=== PATIENT | female | born 1965 | race African-American/Black ===

== ENCOUNTER → 2016-07-10 | Outpatient (CLI) | payer OTHER ==
[~2016-07-10] VITALS: Ht 165.1 cm; Wt 93.4 kg
[~2016-07-10] MED LIST: CYCLOBENZAPRINE5 MG PO; CYMBALTA20 MG PO; FARXIGA5 MG PO; HYDROCODONE-APA1 TA1 PO; IBUPROFEN 200200 M1 PO; IBUPROFEN 800800 M1 PO
--- NOTE | ~2016-07-10 | HPC ---
[facility] [place] [address] PAIN MANAGEMENT CONSULTATION Name: JOSE BISHOP Room #: REG [facility] Freeman#: [id number] Admission: 07/10/16 Attend Phys: Harrison Dallas DO Discharge: Date of : 65 Report #: [id number] THIS REPORT FOR: //name// CC: Kathy Dallas The patient is a very pleasant 50-year-old female, seen in consultation at the request of Dr. Chun for evaluation of pain, neck, left shoulder, arm, radiating into the thumb, index, and long finger. The patient notes paresthesia, but fortunately denies weakness. She has tried physical therapy, ibuprofen, and p.o. steroids (the latter affording transient relief). She notes symptoms seem to be exacerbated with driving and working. Gets some relief with neck repositioning. She describes continuous, steady, constant, rhythmic, periodic, intermittent, brief momentary, burning, aching, gnawing, and tender pain. Rates anywhere from 7-10 on a 0-10 visual analog scale. REVIEW OF SYSTEMS: Complete review of systems was attached to the chart and gone over with the patient. She is single. Does not smoke or drink alcohol to excess. She has enjoyed remarkably good health, does have some issues with glucose control, non-insulin dependent diabetes treated with Farxiga. He has tried ibuprofen 800 mg t.i.d., Flexeril 5 mg for spasm, and hydrocodone 7.5/325 infrequently for current left cervical radicular pain issues. Does use Cymbalta 20 mg daily. Prior surgical history is simply tubal ligation in 2002. At of the , the patient has worked as maintenance custodian. She continues to work despite pain. Pain impact score, however, is quite high, averaging about 9.1 for all indices queried. PHYSICAL EXAMINATION: VITAL SIGNS: Reveals a 5 feet 5 inches, 203 pounds female, BMI is 34.3 kilograms per meter squared. Blood pressure 109/71, pulse 82, respirations are 14. NEUROLOGIC: Cranial nerves 2-12 are grossly intact. HEENT: Pupils are equal, round, and reactive to light and accommodation. Extraocular muscles are intact. There is no nystagmus or lateral gaze deviation. NECK: Cervical range of motion is modestly limited. Positive Lhermitte's with neural tensioning symptoms going to the left upper extremity. Some tenderness in the splenius capitis and trapezius muscles. No discrete trigger points are noted. He does have some slight decreased left biceps strength. Biceps reflexes are diminished on the left compared to the right, though brachioradialis and triceps reflexes are symmetric. Tinel's is negative. Hand grasp is generally symmetric. HEART: Regular and rhythmical without murmur. LUNGS: Clear to auscultation. She has gynecoid distribution body fat. Gait is tandem. Lower extremity strength is preserved. Skin integument is intact. [address] [address] PAIN MANAGEMENT CONSULTATION Name: JOSE BISHOP Room #: FANNY Millard#: [id number] Admission: 07/10/16 Attend Phys: Harrison Dallas DO Discharge: Date of : 65 Report #: [id number] DIAGNOSTIC STUDIES: MRI of the cervical spine from 03/26/2016 notes C3-C4 to have moderate neural foraminal stenosis. C4-C5 and C5-C6, however, have bilateral facet hypertrophy and severe left neural foraminal narrowing. ASSESSMENT: Symptomatic cervical radiculopathy by clinical exam and history in a very pleasant 50-year-old female with comorbidities including non-insulin dependent diabetes. RECOMMENDATIONS: 1. Cervical epidural injection under fluoroscopy today. We will limit steroid to 60 mg in consideration of her glucose intolerance. 2. We recommend iydu-nxl-tqljpge naproxen sodium, if the patient's ibuprofen prescription runs out. I cautioned about using multiple nonsteroidal anti-inflammatory medications concurrently, however. Thank you for allowing me to participate in this patient's care. I will keep you abreast of her progress. ASSESSMENT: Symptomatic cervical radiculopathy. PROCEDURE: Cervical epidural steroid injection under fluoroscopy. DESCRIPTION OF PROCEDURE: After written and informed consent was obtained including risk of dural puncture, spinal cord trauma, paralysis and increased pain, the patient was taken to the fluoroscopy suite and placed in the prone position, with appropriate abdominal bolstering, neck was flexed, palms under the thighs. Skin was prepped with ChloraPrep. Sterile draping was applied. Skin wheal with 1% Xylocaine was raised. A 22-gauge 3-1/2 inch epidural Tuohy needle was placed via a midline approach at the C7-T1 interspace, advanced under biplanar fluoroscopy using continuous loss of resistance. With appropriate loss of resistance at the expected depth on lateral view, the glass loss of resistance syringe was disconnected. A low volume extension tubing was connected to the needle and a 5 mL syringe. Negative aspiration for cerebrospinal fluid or blood was noted. A 1 mL of Omnipaque was injected which showed spread within the epidural space on biplanar fluoroscopy. This was followed with 80 mg of triamcinolone plus 1 mL of 1.5% preservative Xylocaine. Needle was withdrawn to the interspinous ligament, 0.5 mL of Xylocaine was used to flush the needle. The needle was then completely withdrawn. The area was cleansed. Band-Aid was applied. The patient was allowed to move off the procedure table and ambulated to the recovery room, monitored for an appropriate period of time, discharged in good and stable condition. <ELECTRONICALLY SIGNED> By: Harrison Dallas DO 07/11/16 0736 [id number] Harrison Dallas DO /nt
[2016-07-10 10:42] VITALS: BP 109/71
== END ==
LOC: PAIN 07:08
DX: M54.12 Radiculopathy, cervical region (principal); E11.9 Type 2 diabetes mellitus without complications; F32.9 Major depressive disorder, single episode, unspecified; M19.90 Unspecified osteoarthritis, unspecified site

== ENCOUNTER → 2016-07-24 | Outpatient (CLI) | payer OTHER ==
[~2016-07-24] VITALS: Ht 165.1 cm; Wt 95.0 kg
--- NOTE | ~2016-07-24 | HPC ---
[facility] [place] [address] PAIN MANAGEMENT CONSULTATION Name: JOSE BISHOP Room #: REG [facility] Freeman#: [id number] Admission: 07/24/16 Attend Phys: Harrison Dallas DO Discharge: Date of : 65 Report #: [id number] THIS REPORT FOR: //name// CC: Kathy Dallas DATE OF SERVICE: 07/24/2016 SUBJECTIVE: The patient is a very pleasant 50-year-old female seen in consultation on 07/10/2016, diagnosed with symptomatic cervical radiculopathy. She was given 1 cervical epidural injection at that time. She returns to pain clinic today noting that she had very good relief following the injection up to 50% relief. Still has some numbness, tingling in the left arm. PHYSICAL EXAMINATION: GENERAL: A 50-year-old female, BMI is 34.8 kilograms per meter squared. VITAL SIGNS: Stable as noted in the EMR. NEUROLOGIC: Positive Lhermitte's with left triceps strength being diminished compared to the right. Left triceps deep tendon reflexes absent. Brachioradialis and biceps reflexes are generally symmetric. Hand grasp is improving. ASSESSMENT: Symptomatic cervical radiculopathy with incremental improvement following single injection. We reviewed the patient's MRI, which does show C4-C5 to have bilateral facet hypertrophy causing severe left and moderate to severe right neural foraminal narrowing. C5-C6 similarly noting severe left and moderate right neural foraminal narrowing. RECOMMENDATION: Cervical epidural injection under fluoroscopy today. Follow up in 4 weeks for reevaluation. I have taken the liberty of writing for work restriction, no lifting or pushing more than 20 pounds for 4 weeks. ASSESSMENT: Symptomatic cervical radiculopathy. PROCEDURE: Cervical epidural steroid injection under fluoroscopy. PROCEDURE NOTE: After written and informed consent was obtained including risk of dural puncture, spinal cord trauma, paralysis and increased pain, the patient was taken to the fluoroscopy suite and placed in the prone position, with appropriate abdominal bolstering, neck was flexed, palms under the thighs. Skin was prepped with ChloraPrep. Sterile draping was applied. Skin wheal with 1% Xylocaine was raised. A 22-gauge 3-1/2 inch epidural Tuohy needle was placed via a midline approach at the C7-T1 interspace, advanced under biplanar fluoroscopy using continuous loss of resistance. With appropriate loss of [address] [address] PAIN MANAGEMENT CONSULTATION Name: JOSE BISHOP [id number] Admission: 07/24/16 Attend Phys: Harrison Dallas DO Discharge: Date of : 65 Report #: [id number] resistance at the expected depth on lateral view, the glass loss of resistance syringe was disconnected. A low volume extension tubing was connected to the needle and a 5 mL syringe. Negative aspiration for cerebrospinal fluid or blood was noted. A 1 mL of Omnipaque was injected which showed spread within the epidural space on biplanar fluoroscopy. This was followed with 80 mg of triamcinolone plus 1 mL of 1.5% preservative Xylocaine. Needle was withdrawn to the interspinous ligament, 0.5 mL of Xylocaine was used to flush the needle. The needle was then completely withdrawn. The area was cleansed. Band-Aid was applied. The patient was allowed to move off the procedure table and ambulated to the recovery room, monitored for an appropriate period of time, discharged in good and stable condition. <ELECTRONICALLY SIGNED> By: Harrison Dallas DO 07/25/16 0925 [id number] Harrison Dallas DO /nt
[2016-07-24 12:47] VITALS: BP 122/84
== END | disposition home or self-care (01) ==
LOC: PAIN 07:53
DX: M54.12 Radiculopathy, cervical region (principal); Z98.890 Other specified postprocedural states

== ENCOUNTER → 2016-08-21 | Outpatient (CLI) | payer OTHER ==
[~2016-08-21] VITALS: Ht 165.1 cm; Wt 99.8 kg
--- NOTE | ~2016-08-21 | HPC ---
[facility] [place] [address] PAIN MANAGEMENT CONSULTATION Name: JOSE BISHOP Room #: REG MIT[facility] Millard#: [id number] Admission: 08/21/16 Attend Phys: Harrison Dallas DO Discharge: Date of : 65 Report #: [id number] THIS REPORT FOR: //name// CC: Kathy Dallas The patient is a 51-year-old female. She has had 2 cervical epidural injections with significant improvement of baseline pain nearly 90%, but she still has paresthesia in the left arm, has not been able to return to full work. She has trouble lifting or pushing anything greater than about 20 pounds. We reviewed her MRI, which shows left greater than right neural foraminal narrowing at L4-L5 and L5-L6. She does have actually fairly significant neural foraminal stenosis at this level. She has classic C6 radicular symptoms with paresthesia going into the left thumb. Otherwise, physical exam Shows pleasant 51-year-old female, alert and oriented to person, place, and time, judged to be a reasonable historian. BMI is 36.6 kilograms per meter squared. Vital signs are stable as noted in the EMR. Cervical range of motion is limited with positive Lhermitte's and actually some exacerbation of pain with flexion as well. Upper extremity strength is improving. ASSESSMENT: Symptomatic cervical radiculopathy status post 2 cervical epidural injections with unfortunately some left C6 radicular symptoms remaining. RECOMMENDATIONS: 1. Repeat cervical epidural injection under fluoroscopy today. 2. We will refer to physical therapy for increased range of motion and strength, upper extremities. 3. We will continue work release, no lifting or pushing more than 20 pounds for 4 weeks. Follow up in 4 weeks for reevaluation. If doing well, return to full duty. If she still has C6 radicular symptoms, we will refer to Neurosurgery for consideration for definitive intervention. Thank you for allowing me to participate in the patient's care. I will keep you abreast of her progress. ASSESSMENT: Symptomatic cervical radiculopathy. PROCEDURE: Cervical epidural injection under fluoroscopy. PROCEDURE NOTE: After written and informed consent was obtained including risk of dural puncture, spinal cord trauma, paralysis and increased pain, the patient was taken to the fluoroscopy suite and placed in the prone position, with appropriate abdominal bolstering, neck was flexed, palms under the thighs. Skin was prepped with ChloraPrep. Sterile draping was applied. Skin wheal with 1% Xylocaine was raised. A 22-gauge 3-1/2 inch epidural Tuohy needle was placed via a midline approach at the C7-T1 interspace, [place] [address] PAIN MANAGEMENT CONSULTATION Name: JOSE BISHOP Room #: REG [facility] Millard#: [id number] Admission: 08/21/16 Attend Phys: Harrison Dallas DO Discharge: Date of : 65 Report #: [id number] fluoroscopy using continuous loss of resistance. With appropriate loss of resistance at the expected depth on lateral view, the glass loss of resistance syringe was disconnected. A low volume extension tubing was connected to the needle and a 5 mL syringe. Negative aspiration for cerebrospinal fluid or blood was noted. A 1 mL of Omnipaque was injected which showed spread within the epidural space on biplanar fluoroscopy. This was followed with 80 mg of triamcinolone plus 1 mL of 1.5% preservative Xylocaine. Needle was withdrawn to the interspinous ligament, 0.5 mL of Xylocaine was used to flush the needle. The needle was then completely withdrawn. The area was cleansed. Band-Aid was applied. The patient was allowed to move off the procedure table and ambulated to the recovery room, monitored for an appropriate period of time, discharged in good and stable condition. <ELECTRONICALLY SIGNED> By: Harrison Dallas DO 08/22/16 0713 [id number] 0351 Harrison Dallas DO /nt
[2016-08-21 09:43] VITALS: BP 111/73
== END ==
LOC: PAIN 07:00
DX: M54.12 Radiculopathy, cervical region (principal)

== ENCOUNTER → 2016-09-18 | Outpatient (CLI) | payer OTHER ==
[~2016-09-18] VITALS: Ht 165.1 cm; Wt 99.7 kg
--- NOTE | ~2016-09-18 | HPC ---
[facility] [place] [address] PAIN MANAGEMENT CONSULTATION Name: JOSE BISHOP Room #: REG [facility] Freeman#: [id number] Admission: 09/18/16 Attend Phys: Harrison Dallas DO Discharge: Date of : 65 Report #: [id number] THIS REPORT FOR: //name// CC: Kathy Dallas The patient is a very pleasant 51-year-old female, being treated for symptomatic cervical radiculopathy. She has had 3 cervical epidural injections, 07/10/2016, 07/24/2016, and 08/19/2016. At last visit, we did refer the patient to physical therapy. She returns to pain clinic today noting that the pain, paresthesia, and numbness is essentially gone, rates pain as 0. She still has occasional sensations of a radicular " " with cervical range of motion and occasional feeling of left hand feeling cold. PHYSICAL EXAMINATION: Shows a 51-year-old female, BMI is 36.6 kg/m2. Vital signs are stable as noted on the EMR. Cervical range of motion is full with a modestly positive Lhermitte's going to the left. Upper extremity strength is robust and symmetric for the deltoid, biceps, and triceps. Hand grasp is symmetric. Peripheral pulses are good. Nail blanches within 3 seconds. Deep tendon reflexes of the biceps, triceps, brachioradialis are all symmetric. We did review her MRI from 03/26/2016, it does note at C4-C5 bilateral facet hypertrophy causing severe left and [id number] right neural foraminal narrowing and C5-C6 noting hypertrophy causing severe left and moderate right neural foraminal narrowing. ASSESSMENT: Symptomatic cervical radiculopathy by clinical exam and history, symptoms have essentially resolved at present, though she does have significant pathology noted on the MRI findings, may have recurrence of symptoms at some point. We discussed future therapeutic options. If symptoms recur in short order, we will suggest the patient be referred to neurosurgery for consideration for cervical decompression. If; however, she is doing reasonably well and symptoms recur within a year or more, we may consider repeat epidural injection. Thank you for allowing me to participate in the patient's care. Today, I have released her from care, I did provide her with a return to work with no restrictions note. I spent approximately 25 minutes with the patient today from 8:23 to 8:50. Greater than 50% of this time was spent reviewing therapeutic options, [place] [address] PAIN MANAGEMENT CONSULTATION Name: JOSE BISHOP Room #: REG [facility] [id number] Admission: 09/18/16 Attend Phys: Harrison Dallas DO Discharge: Date of : 65 Report #: [id number] likely future therapies and counseling the patient. No followup appointment was made. By: [id number] Harrison Dallas DO /alley
[2016-09-18 08:08] VITALS: BP 114/61
== END | disposition home or self-care (01) ==
LOC: PAIN 06:37
DX: M54.12 Radiculopathy, cervical region (principal); Z98.890 Other specified postprocedural states